=== PATIENT | male | born 1960 | race Caucasian/White ===

== ENCOUNTER → 2022-08-01 | Day surgery (SDC) | payer OTHER ==
[2022-07-29 15:15] VITALS: BP 154/84
[~2022-08-01] VITALS: Ht 172.7 cm; Wt 70.3 kg
[~2022-08-01] MED LIST: COLACE100 MG PO; HYDROCODONE-AC1 EAC1 PO; ONDANSETRON HYDR4 M1 PO
[2022-08-01 09:15] VITALS: BP 122/76
[2022-08-01 10:46] VITALS: BP 108/78
[2022-08-01 11:01] VITALS: BP 116/67
[2022-08-01 11:16] VITALS: BP 118/68
[2022-08-01 11:31] VITALS: BP 120/73
[2022-08-01 11:46] VITALS: BP 126/75
== END | disposition home or self-care (01) ==
LOC: SDC 07-28 14:00
PROVIDERS: ATTEND Surgery
DX: K40.31 Unilateral inguinal hernia, with obstruction, without gangrene, recurrent (principal)